=== PATIENT | male | born 1960 | race Caucasian/White ===

== ENCOUNTER 2017-12-20 09:21 | Outpatient (CLI) | payer OTHER ==
[~2017-12-20 09:21] MED LIST: PROTONIX40 MG PO
== END 2017-12-20 09:30 | disposition home or self-care (01) ==
LOC: RAD 09:21
DX: R10.2 Pelvic and perineal pain (principal); M79.672 Pain in left foot; M79.671 Pain in right foot; D64.9 Anemia, unspecified; E78.2 Mixed hyperlipidemia; E03.8 Other specified hypothyroidism; N39.0 Urinary tract infection, site not specified; K92.1 Melena; E55.9 Vitamin D deficiency, unspecified; R73.09 Other abnormal glucose

== ENCOUNTER → 2018-05-22 10:35 | Outpatient (CLI) | payer OTHER | END | disposition home or self-care (01) | LOC: LAB 10:35 | DX: Z86.010 Personal history of colon polyps (principal); Z51.81 Encounter for therapeutic drug level monitoring ==

== ENCOUNTER 2019-09-30 11:38 | Outpatient (CLI) | payer OTHER | END 2019-09-30 11:52 | disposition home or self-care (01) | LOC: LAB 11:38 | DX: R05 Cough (principal); J20.8 Acute bronchitis due to other specified organisms; E78.2 Mixed hyperlipidemia; R10.13 Epigastric pain; Z13.29 Encounter for screening for other suspected endocrine disorder; K21.0 Gastro-esophageal reflux disease with esophagitis; N40.0 Benign prostatic hyperplasia without lower urinary tract symptoms ==

== ENCOUNTER 2021-11-30 09:28 | Outpatient (CLI) | payer OTHER | END 2021-11-30 09:40 | disposition home or self-care (01) | LOC: RAD 09:28 | PROVIDERS: ATTEND Internal Medicine Gastroenterology | DX: R05.3 Chronic cough (principal) ==

== ENCOUNTER → 2022-12-20 | Outpatient (CLI) | payer OTHER | END | disposition home or self-care (01) | LOC: SONOGRAMA 09:47 | PROVIDERS: ATTEND Internal Medicine Sports Medicine | DX: R10.13 Epigastric pain (principal); M25.571 Pain in right ankle and joints of right foot; M25.572 Pain in left ankle and joints of left foot; J41.0 Simple chronic bronchitis ==

== ENCOUNTER 2023-04-17 10:00 | Outpatient (CLI) | payer OTHER | END 2023-04-17 10:01 | disposition home or self-care (01) | LOC: NUCLEAR 10:00 | PROVIDERS: ATTEND Internal Medicine | DX: I65.23 Occlusion and stenosis of bilateral carotid arteries (principal); I11.9 Hypertensive heart disease without heart failure ==

== ENCOUNTER 2023-04-17 12:23 | Outpatient (CLI) | payer OTHER | END 2023-04-17 12:35 | disposition home or self-care (01) | LOC: TOM 12:23 | DX: J44.9 Chronic obstructive pulmonary disease, unspecified (principal); J43.9 Emphysema, unspecified ==

== ENCOUNTER 2024-05-21 10:37 | Outpatient (CLI) | payer OTHER | END 2024-05-21 10:47 | disposition home or self-care (01) | LOC: RAD 10:37 | DX: R91.1 Solitary pulmonary nodule (principal) ==

== ENCOUNTER 2025-07-15 09:44 | Outpatient (CLI) | payer OTHER | END 2025-07-15 09:47 | disposition home or self-care (01) | LOC: SONOGRAMA 09:44 | PROVIDERS: ATTEND Urology | DX: N40.0 Benign prostatic hyperplasia without lower urinary tract symptoms (principal); R31.21 Asymptomatic microscopic hematuria; R31.1 Benign essential microscopic hematuria ==